=== PATIENT | female | born 1955 | race Caucasian/White ===

== ENCOUNTER 2022-07-16 13:40 | Emergency (ER) | payer MEDICARE ==
[~2022-07-16] VITALS: Ht 157.5 cm; Wt 68.0 kg
--- NOTE | 2022-07-16 13:45 | NUR ---
BIB [facility],C/O BACK AND LEFT WRIST PAIN,S/P SLIP/FALL AT A DEPARTMENT STORE,AMBULATORY ON SCENE. VITALS ARE WITHIN NORMAL LIMITS. SHAMIR JAFFE ORDERS.
[2022-07-16] MEDS ORDERED: IBUP-1955 PO (15:58)
--- NOTE | 2022-07-16 16:06 | NUR ---
Patient discharged to home in stable condition. Written and verbal after care instructions given. Patient verbalizes understanding of instruction.
[2022-07-16 16:07] VITALS: BP 123/74
== END 2022-07-16 16:08 | disposition home or self-care (01) ==
LOC: ER 13:42
DX: M79.642 Pain in left hand (principal); M79.641 Pain in right hand; M54.50 Low back pain, unspecified; J45.909 Unspecified asthma, uncomplicated; E11.9 Type 2 diabetes mellitus without complications; Z88.5 Allergy status to narcotic agent; W01.0XXA Fall on same level from slipping, tripping and stumbling without subsequent striking against object, initial encounter; Y93.89 Activity, other specified; Y92.89 Other specified places as the place of occurrence of the external cause; Y99.8 Other external cause status
CPT/HCPCS: 72128-TC; 72131-TC; 73130-TC